=== PATIENT | female | born 1945 | race Caucasian/White ===

== ENCOUNTER → 2021-02-28 07:53 | Outpatient (CLI) | payer MEDICARE, BC | END | disposition home or self-care (01) | LOC: D.HCCARDIO 07:53 | PROVIDERS: ATTEND Internal Medicine Cardiovascular Disease | DX: I20.9 Angina pectoris, unspecified (principal) ==

== ENCOUNTER 2021-03-08 10:42 | Day surgery (SDC) | payer MEDICARE, BC ==
[~2021-03-08] VITALS: Ht 167.6 cm; Wt 53.5 kg
--- NOTE | ~2021-03-08 | HEMODYNAMI ---
PATIENT:LUIS DIOR MEDICAL RECORD: [id number] : 41 LOCATION:[facility] ADMISSION DATE: 03/08/21 Generatedon:113:55 Patient name: LUIS DIOR Patient #: [id number] SSN: [id number] : 1945 Date of study: 03/08/2021 Page: Of Hemodynamic Procedure Report Patient Data Patient Demographics Procedure consent was obtained First Name: LUIS Gender: Female Last Name: OVI : 1945 Patient #: [id number] Age: 75 year(s) Race: SSN: [id number] Additional ID: [id number] Contact details Address: [place] [address] State: [place] City: [place] Zip code: [address] Past Medical History Performed procedures and imaging results Date Procedure Procedure Results Comments 02/28/2021 Stress testing Positive->Intermediate with SPECT MPI risk Allergies: No known allergies Admission Admission Data Admission Date: 03/08/2021 Admission Time: 10:42 Arrival Date: 03/08/2021 Arrival Time: 0:00 Admit Source: Other Insurance Payor: Medicare [facility] #: [id number] Height (in.): 66 BSA: 1.6 (m2) Height (cm.): 167.64 BMI: 19.05 (kg/m2) Weight (lbs.): 118.04 Weight (kg.): 53.54 Lab Results Lab Result Date: 03/08/2021 Lab Result Time: 0:00 Biochemistry Name Units Result Min Max BUN mg/dl 14 --(--*-)-- 7 18 Creatinine mg/dl 0.5 -*(----)-- 0.6 1.3 eGFR ml/min 90 --(*---)-- 90 120 NONAFRICAN CBC Name Units Result Min Max Hematocrit % 40.6 -*(----)-- 42 54 Hemoglobin g/dl 13.5 --(*---)-- 13.5 17.5 Procedure Procedure Types Cath Procedure Diagnostic Procedure [facility] w/Coronaries Sedation Charges Moderate Sedation 10-24 minutes Procedure Description Procedure Date Procedure Date: 03/08/2021 Procedure Start Time: 13:39 Procedure End Time: 13:52 Procedure Staff Name Function Phoebe Lagos RT Scrub Jovany Godwin MD Performing Physician Uzma Quintana RT Monitor Bassam Cano RN Nurse Indication Tachycardia Procedure Data Cath Procedure Fluoroscopy Diagnostic fluoroscopy Total fluoroscopy Time: 1.3 time: 1.3 min min Diagnostic fluoroscopy Total fluoroscopy dose: 127 dose: 127 mGy mGy Contrast Material Contrast Material Type Amount (ml) Isovue 370 49 Entry Location Entry Primary Successful Side Size Upsize Upsize Entry Closure Paul ccessful Closure Location (Fr) 1 (Fr) 2 (Fr) Remarks Device Remarks Radial Right 6 Fr Mechanical artery Short Compression Femoral Right 5 Fr Exoseal artery Estimated blood loss: 5 ml Diagnostic catheters Device Type Used For End Catheter Placement MULTIPACK JL 4.0 5Fr Procedure catheter MULTIPACK 3DRC 5Fr Procedure catheter MULTIPACK Pigtail 5 Fr Procedure catheter DIAGNOSTIC [place] 110cm 5 Procedure Fr catheter ([id number]) Procedure Complications No complications Procedure Medications Medication Administration Route Dosage 0.9% NaCl I.V. 100 ml/hr Oxygen etCO2 Nasal cannula 2 l/min Heparin Flush Bag added to field 2 bags (1000units/500ml NS) Lidocaine 2% added to field 20 Versed I.V. 1 mg Fentanyl I.V. 50 mcg Hemodynamics Rest BSA: 1.6 (m2) HGB: 13.5 (g/dl) O2 Consumption: Estimated: 137.37 (ml/min) O2 Con sumption indexed: Estimated:85.86 (ml/min/m) Heart Rate: 58 (bpm) Pressure Samples Time Site Value (mmHg) Purpose Heart Use Rate(bpm) 13:46 LV 97/-3,1 Snapshot 64 13:47 AO 97/34(64) Pullback 68 Gradients Valve Time Site Site 2 Mean SEP/DFP Peak To Heart Use 1 (mmHg) (sec/min) Peak Rate (mmHg) (bpm) Aortic 13:47 LV AO 14 22 68 97/34(64) Calculations Valve P-P Mean Valve Index Valve Source Name Gradient Area Flow (cm2) Aortic 14 14 Snapshots Pre Cath Intra NCS Post Cath Vital Signs Time Heart Resp SPO2 etCO2 NIBP Rhythm Pain Sedation Rate (ipm) (%) (mmHg) (mmHg) Status Level (bpm) 13:31:38 56 44 100 24.6 127/51(83) NSR 0 (11) 10(A) , No pain 13:35:50 57 27 99 0.7 118/49(85) NSR 0 (11) 10(A) , No pain 13:39:58 56 14 99 0 116/54(86) NSR 0 (11) 10(A) , No pain 13:44:05 65 14 98 35.1 112/52(82) NSR 0 (11) 10(A) , No pain 13:48:11 63 15 98 35.8 115/52(86) NSR 0 (11) 10(A) , No pain 13:52:19 62 14 98 20.9 115/50(86) NSR 0 (11) 10(A) , No pain Medications Time Medication Route Dose Verified Delivered Reason Notes Eff ectiveness by by 13:32:06 0.9% NaCl I.V. 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 50 Jovany Dunny for mcg [address] Rey Cano RN sedation 13:32:24 Heparin Flush added 2 Jovany Manzo used for Bag to bags CitlaliRey Godwin procedure (1000units/500ml field MD SZYMANSKI NS) 13:32:32 Lidocaine 2% added 20ml Jovany Manzo for local to vial [facility] anesthetic field MD SZYMANSKI Procedure Log Time Note 12:29:29 Admit Source: Other 12:29:53 Procedure Status Elective Heart Cath (OP). 12:44:51 Informed consent obtained and on chart 12:45:17 Diagnostic Cath Status : Elective 12:46:18 Arrival Date: 03/08/2021 12:00:00 AM 12:46:24 Insurance Payor : Medicare 12:47:07 Patient Height : 66 inches 12:47:13 Patient Weight : 118.04 lbs 12:47:44 ACC Patient presents with Stable Angina CCS Anginal Class 2--Slight limitation of ordinary activity. 12:47:48 Time tracking: Regular hours (M-F 7:00 - 5:00) 12:47:52 Plan of Care:Hemodynamics will remain stable., Cardiac rhythm will remain stable., Comfort level will be maintained., Respiratory function will remain adequate., Patient/ family verbilizes understanding of procedure., Procedure tolerated without complication., Recovers from procedure without complications.. 12:47:59 H&P Date Dictated: 02/15/2021 Within 30 days and on chart.. 12:48:01 Family in waiting room. 12:48:03 Patient NPO since Midnight. 12:48:19 Stress Test: yes; abnormal INFERIOR, APICAL 12:48:20 Sharps counted by scrub and verified by R.N. 12:48:20 Alarms reviewed by R. N. 12:48:23 Risk of Mortality: 0.1 12:48:26 Risk of blood transfusion: 1.5 12:48:29 Risk of RUBIN: 1.0 12:48:31 Lab results completed and on chart. 12:48:56 Lab Result : Hemoglobin 13.5 g/dl 12:48:56 Lab Result : Hematocrit 40.6 % 12:48:56 Lab Result : eGFR NONAFRICAN 90 ml/min 12:48:56 Lab Result : BUN 14 mg/dl 12:48:56 Lab Result : Creatinine 0.5 mg/dl 13:11:15 Phoebe Lagos RT(R) sent for patient. Start room use. 13:12:01 Indication : Tachycardia 13:20:05 Warm blankets applied, and kathleen hugger turned on for patient comfort. 13:20:58 Patient received from Pre/Post Procedure Room to CCL 2 Alert and oriented. Tansferred to table in Supine position. 13:21:12 Correct patient and procedure confirmed by team. 13:21:20 ECG and BP/O2 sat monitors applied to patient. 13:26:44 Pre-procedure instructions explained to patient. 13:26:45 Pre-op teaching completed and patient verbalized understanding. 13:27:05 Patient allergic to No known allergies 13:27:35 Patient allergic to No known allergies 13:30:21 Vital chart was started 13::26 Full Disclosure recording started 13:30:27 Baseline sample Acquired. 13:30:32 Rhythm: sinus rhythm 13:30:37 Is the patient allergic to Iodine/contrast media? No. 13:30:39 Was the patient premedicated? Yes 13:30:40 Is patient on blood thinner?No 13:30:42 Patient diabetic? No. 13:30:43 If diabetic: On Metformin? N/A 13:30:45 Patient not . Patient is over age 55. 13:30:45 ----Pre-sedation anethsthesia assessment.---- 13:30:48 Previous problem with sedation/anesthesia? No ? 13:30:48 Snore? Yes 13:30:50 Sleep apnea? Unknown 13:30:51 Deviated septum? No 13:30:52 Opens mouth fully? Yes 13:30:53 Sticks out tongue? Yes 13:30:55 Airway obstruction? No ? 13:30:57 Dentures? No ? 13:31:01 Pre procedure: right dorsailis pedis pulse 1+ Palpable, but thready & weak; easily obliterated 13:31:03 Modified Rodríguez's test Ulnar < 7 seconds 13:31:05 Patient pain scale 0/10 ?. 13:31:13 IV patent on arrival in left antecubital with 0.9% NaCl at [facility]. 13:31:17 Right Radial & Right Groin area was prepped with chlora-prep and draped in sterile fashion 13:31:20 Use device set Radial Dx or PCI 13:31:22 ACIST Syringe (33527) opened to sterile field. 13:31:24 Medline Cath Pack ([id number]) opened to sterile field. 13:31:24 Bag Decanter (2002S) opened to sterile field. 13:31:25 ACIST Hand Control (06606) opened to sterile field. 13:31:25 ACIST Manifold (70198) opened to sterile field. 13:31:26 MBrace Wrist Support ([id number]) opened to sterile field. 13:31:28 EMERALD Guide Wire (894-662) opened to sterile field. 13:31:28 SHEATH 6FR RAIN (2909124) opened to sterile field. 13:31:35 --------ALL STOP TIME OUT------ 13:31:36 Final Timeout: patient, procedure, and site verified with staff and physician. All members of the team are in agreement. 13:31:37 Right Radial & Right Groin site verified by team. 13:31:42 Fire Safety Assessment: A--An alcohol-based skin anteseptic being used preoperatively., C--Open oxygen or nitrous oxide is being used., D--An ESU, laser, or fiber-optic light is being used. 13:31:46 Physical assessment completed. ASA score P 2 - A patient with mild systemic disease as per Jovany Godwin MD. 13:31:49 1) 90+ Normal kidney functon but urine findings or structural abnormalities or genetic trait point to kidney disease. 13:31:51 Maximum allowable contrast dose (3.7 X eGFR X 0.75)250 ml. 13:31:54 Sedation plan: IV Moderate Sedation Medication:Versed, Fentanyl 13:32:06 0.9% NaCl 100 ml/hr I.V. was administered by Bassam Cano RN; used for procedure; Verbal order read back and verified. 13:32:11 Versed 1 mg I.V. was administered by Bassam Cano RN; for sedation; Verbal order read back and verified. 13:32:14 Oxygen 2 l/min etCO2 Nasal cannula was administered by Bassam Cano RN; used for procedure; Verbal order read back and verified. 13:32:17 Fentanyl 50 mcg I.V. was administered by Bassam Cano RN; for sedation; Verbal order read back and verified. 13:32:24 Heparin Flush Bag (1000units/500ml NS) 2 bags added to field was administered by Jovany Godwin MD; used for procedure; Verbal order read back and verified. 13:32:32 Lidocaine 2% 20ml vial added to field was administered by Jovany Godwin MD; for local anesthetic; Verbal order read back and verified. 13:36:44 Procedure started. 13:39:10 Local anesthetic to right radial artery with Lidocaine 2% by Jovany Godwin MD.INITIAL ACCESS ONLY 13:39:56 A 6 Fr Short sheath was inserted into the Right Radial artery 13:40:04 Zero performed for pressure channel P1 13:40:45 A DIAGNOSTIC [place] 110cm 5 Fr catheter (545902) was advanced over the wire and used for Procedure. 13:41:30 UNABLE TO ADVANCE CATHETER AND WIRE FOR RADIAL, PROCEEDING TO GROIN. 13:41:50 Local anesthetic to right femoral artery with Lidocaine 2% by Jovany Godwin MD.ADDITIONAL ACCESS 13:41:55 Use device set Multipack Set 13:41:56 DIAGNOSTIC Multipack 5Fr catheter set ([id number]) opened to sterile field. 13:41:57 SHEATH 5FR [place] (PPG079) opened to sterile field. 13:42:07 A 5 Fr sheath was inserted into the Right Femoral artery 13:42:34 A MULTIPACK JL 4.0 5Fr catheter was advanced over the wire and used for Procedure. 13:43:12 LCA angiography performed. 13:43:32 Injector settings: Ml/sec: 3, Volume: 6, 13:43:59 Catheter removed. 13:44:05 A MULTIPACK 3DRC 5Fr catheter was advanced over the wire and used for Procedure. 13:44:42 RCA angiography performed. 13:44:45 Injector settings: Ml/sec: 3, Volume: 6, 13:44:58 Catheter exchanged over wire. 13:45:48 ZEPHYR REGULAR TR BAND (258610) opened to sterile field. 13:45:50 Tegaderm 4 x 4 (1626W) opened to sterile field. 13:46:03 A MULTIPACK Pigtail 5 Fr catheter was advanced over the wire and used for Procedure. 13:46:30 LV gram done using TAPIA 13:46:45 LV hemodynamics recorded. 13:46:48 Injector settings: Ml/sec: 5, Volume: 15, 13:46:54 EF : 55 % 13:46:58 Catheter removed. 13:47:07 Sheath removed intact; hemostasis achieved with Mechanical Compression to the Right Radial artery. 13:47:16 Sheath removed intact; hemostasis achieved with Exoseal to the Right Femoral artery. 13:47:50 Procedure ended.(Physican Out) 13:47:59 Fluoroscopy time 01.30 minutes. 13:48:05 Flurop Dose total: 127 13:48:05 Fluoroscopy dose: 127 mGy 13:48:09 Dose Area Product 7605 mGy/cm. 13:48:16 Contrast amount:Isovue 370 49ml. 13:48:19 Maximum allowable dose exceeded? No. 13:48:20 Sharps counted by scrub and verified by R.N. 13:48:23 [place] band inflated with 10cc of air. 13:48:27 Post-op/insertion site Right Femoral artery dressed using a 4 x 4 and Tegaderm. 13:48:32 Post right femoral artery:stable, soft, clean and dry 13:48:33 Post Procedure Pulses reassessed and unchanged 13:48:35 Post procedure: right dorsailis pedis pulse 1+ Palpable, but thready & weak; easily obliterated. 13:48:38 Post-procedure physical assessment completed. ASA score P 2 - A patient with mild systemic disease as per Jovany Godwin MD. 13:48:41 Post procedure rhythm: unchanged. 13:48:43 Estimated blood loss: 5 ml 13:48:45 Post procedure instruction explained to patient.Patient verbalizes understanding. 13:48:45 Patient needs reinforcement of post procedure teaching. 13:48:56 Procedure and supply charges have been captured, reviewed, submitted and are correct. 13:51:02 Procedure type changed to Cath procedure, Diagnostic procedure, LHC, C w/Coronaries, Sedation Charges, Moderate Sedation 10-24 minutes 13:52:40 Procedure Complication : No complications 13:52:42 Vital chart was stopped 13:52:43 [facility] Findings: mild to moderate CAD (<70%) 13:52:48 Operative report dictated upon procedure completion. 13:52:48 See physician's report for complete and final results. 13:52:49 Report given to Pre/Post Procedure Room. 13:52:52 Patient transfered to Pre/Post Procedure Room with Stretcher. 13:52:54 Procedure ended. 13:52:54 Full Disclosure recording stopped 13:52:59 End room use (Document Last) 13:53:10 End room use (Document Last) Device Usage Item Name Manufacture Quantity Catalog Hospital Part Current Minima l Lot# / Number Charge Number Stock Stock Serial# Code ACIST Acist 1 66182 343115 568341 [id number] 20 Syringe Medical (70921) Systems Inc Medline Medline 1 [id number] 505828 38747 772304 5 Cath Pack ([id number]) Bag Microtek 1 570026 02757 049914 5 Decanter Medical Inc. () ACIST Hand Acist 1 36694 834715 200359 885964 5 Control Medical (92403) Systems Inc ACIST Acist 1 09373 154890 602620 086203 5 Revolutionary Concepts (15268) Systems Inc MBrace Advanced 1 140-0250-00 246782 71655 933892 5 Wrist Vascular Support Dynamics ([id number]) EMERALD Cardinal 1 502-139 691926 808698 939916 5 Guide Wire Health (294-455) SHEATH 6FR Cardinal 1 8256833 710760 0899683 079127 5 [facility] Health (3053445) DIAGNOSTIC Cardinal 1 SX7352 432925 61146 136226 30 Multipack Health 5Fr catheter set (SZ2397) MULTIPACK Cardinal 1 153014 5 JL 4.0 5Fr Health catheter MULTIPACK Cardinal 1 671341 5 3DRC 5Fr Health catheter MULTIPACK Cardinal 1 858624 5 Pigtail 5 Health Fr catheter ZEPHYR Cardinal 1 893486 846454 0188814 036395 5 REGULAR TR Health BAND (562483) Tegaderm 4 3M 1 1626W 884092 030799 506265 5 x 4 (1626W) DIAGNOSTIC Terumo 1 40-3143 212133 408094 976553 5 [place] 110cm 5 Fr catheter (817163) SHEATH 5FR Terumo 1 [id number] 949436 737259 085879 5 [place] (JJK456) Signature Audit [place] Stage Time Signature Unsigned Intra-Procedure 03/08/2021 Uzma Quintana 1:53:10 PM RT(R) Intra-Procedure 03/08/2021 Bassam Cano RN 1:53:34 PM Intra-Procedure 03/08/2021 Jovany Ricketts 1:55:48 PM Rey SZYMANSKI Signatures Performing Physician : Signature : Jovany Godwin MD Date : Time : Monitor : Uzma Quintana Signature : RT Date : Time : Nurse : Bassam Cano RN Signature : Date : Time : [address] [place] [address]
[2021-03-08] MEDS ORDERED: VITAMIN C500 M1 PO (11:04)
[2021-03-08] MEDS ORDERED: VITAMIN D325 MC1 PO (11:04)
[2021-03-08] MEDS ORDERED: PROBIOTIC1 EAC1 PO (11:05)
[2021-03-08 11:20] VITALS: BP 120/48; Ht 167.6 cm; Wt 53.5 kg
[2021-03-08 11:26] LABS: BASOPHILS 0.9 % (0-2); EOSINOPHILS 1.3 % (0-7); HEMATOCRIT 40.6 % (36.0-48.0); HEMOGLOBIN 13.5 g/dL (12-16); MCH 29.4 pg (26.0-34.0); MCHC 33.2 g/dL (31.0-37.0); MCV 88.6 fL (80.0-100.0); MEAN PLATELET VOLUME 7.4 fL (7.4-10.4); NEUTROPHILS 59.8 % (40-80); PLATELET COUNT 240 10x3/uL (130-400); RBC 4.59 10x6/uL (4.00-5.40); RDW 13.9 % (11.5-14.5); WBC 3.6 10x3/uL (4.8-10.8)
[2021-03-08 11:45] LABS: ALT (SGPT) 27 U/L (10-68); CALC OSMOLALITY 281 mosm/kg (275-300); CALCIUM 8.8 mg/dL (8.5-10.1); CARBON DIOXIDE 27.6 mmol/L (21.0-32.0); CHLORIDE - SERUM 106 mmol/L (98-107); CHOL - HDL RATIO 1.9 ratio (2.3-4.1); CHOLESTEROL, TOTAL 193 mg/dL (0-200); CREATININE - SERUM 0.5 mg/dL (0.6-1.3); GLUCOSE 93 mg/dL (74-106); HDL CHOLESTEROL 100 mg/dL (32-96); LDL CHOLESTEROL 87 mg/dL (0-100); LDL-HDL RATIO 0.9 ratio (1.5-3.5); POTASSIUM - SERUM 3.8 mmol/L (3.5-5.1); SODIUM 141 mmol/L (136-145); TRIGLYCERIDE 30 mg/dL (30-200); UREA NITROGEN 14 mg/dL (7-18); eGFR NON AFRICAN AMERICAN > 90 mL/min (90-120)
--- NOTE | 2021-03-08 14:00 | NUR ---
PT REC'D TO CATH RECOVERY ROOM 9 VIA STRETCHER. MONITORS ESTAB, AT BS. SEE HOROLOGIST FLOWSHEETS. ALARMS ON AND C/L IN REACH.
--- NOTE | 2021-03-08 14:15 | NUR ---
R GROIN EXOSEAL SITE SOFT, NO S/S BLEEDING OR HEMATOMA. R WRIST Z BAND SITE C/D/I, NO S/S BLEEDING OR HEMATOMA. PULSES PALP. R ARM/HAND AND R LEG/FOOT WARM WITH BRISK CAP REFILL. VSS. PT RESTING QUIETLY, DENIES PAIN OR NEEDS. ALARMS ON AND C/L IN REACH.
--- NOTE | 2021-03-08 14:45 | NUR ---
R GROIN SITE SOFT, NO S/S BLEEDING OR HEMATOMA. PULSES PALP. HOB ELEVATED. 5CC AIR REMOVED FROM Z BAND, NO S/S BLEEDING OR HEMATOMA. GIVEN WATER PER REQUEST. VSS. SON AT BS. ALARMS ON AND C/L IN REACH.
--- NOTE | 2021-03-08 15:00 | NUR ---
R GROIN SITE SOFT, NO S/S BLEEDING OR HEMATOMS. R Z BAND SITE C/D/I, NO S/S BLEEDING OR HEMATOMA, TOTAL OF 7CC AIR REMOVED FROM Z BAND, WILL CONT CLOSE MONITORING. VSS. C/L IN REACH.
--- NOTE | 2021-03-08 15:15 | NUR ---
ALL AIR REMOVED FROM ZBAND, NO S/S BLEEDING. R GROIN EXOSEAL SITE C/D/I, NO S/S BLEEDING OR HEMATOMA. PT REFUSES SANDWICH AT THIS TIME. VSS. C/L IN REACH.
--- NOTE | 2021-03-08 15:30 | NUR ---
R Z BAND OFF, NO S/S BLEEDING OR SWELLING, DSG APPLIED. PIV D/C'D INTACT, DSG APPLIED. R GROIN EXOSEAL SITE SOFT, NO S/S BLEEDING OR HEMATOMA. PT ALLOWED UP TO GET DRESSED AND GO TO BR INDEPENDENTLY.
--- NOTE | 2021-03-08 15:49 | NUR ---
ALL DISCHARGE INSTRUCTIONS REVIEWED WITH PT AND SON - INCLUDING RESTRICTIONS, MEDS AND F/U APPT, BOTH VERBALIZE UNDERSTANDING.
--- NOTE | 2021-03-08 15:55 | NUR ---
R WRISTS SITE C/D/I, ARM BOARD IN PLACE. PT D/C'D VIA W/C WITH ALL BELONGINGS AND PAPERWORK.
--- NOTE | 2021-03-09 07:50 | OP ---
PATIENT NAME: LUIS DIOR MEDICAL RECORD: [id number] :41 LOCATION:D.CAT ADMISSION DATE: SURGEON: DIANE ZAMARRIPA MD DATE OF OPERATION: 03/08/2021 PROCEDURES: Left heart catheterization, selective coronary angiography, right femoral artery approach unable to engage, radial due to tortuosity of the subclavian. FINDINGS: Left ventriculography in 30-degree TAPIA view: Normal wall motion, normal systolic function. CORONARY ANATOMY: Left main: Left main free of disease. LAD: Free of disease in the diagonal system. CIRCUMFLEX: Free of disease in the marginal system. RIGHT CORONARY ARTERY: Dominant, artery gives rise to PDA, free of disease. IMPRESSION: Normal left ventricular function, normal coronary anatomy. TRANSINT:[id number] Voice Confirmation ID: [id number] DOCUMENT ID: [id number] DIANE ZAMARRIPA MD at 0750 CC: [id number] DICTATION DATE: 03/08/21 1351 ROLL CLAMP OPERATOR: 03/08/21 1722 [facility] 03/08/21 [facility] [address] [place] [address]
== END 2021-03-08 15:55 | disposition home or self-care (01) ==
LOC: D.CATH 10:42
PROVIDERS: ATTEND Internal Medicine Interventional Cardiology
DX: I20.9 Angina pectoris, unspecified (principal); R94.39 Abnormal result of other cardiovascular function study; R00.0 Tachycardia, unspecified; R01.1 Cardiac murmur, unspecified